=== PATIENT | male | born 1955 | race Two or more races ===

== ENCOUNTER 2017-12-25 18:35 | Emergency (ER) | payer OTHER ==
[~2017-12-25] VITALS: Ht 167.6 cm; Wt 74.8 kg
[~2017-12-25 18:35] MED LIST: ASPI-1152 PO; ATOR10TA PO; BENA5TAB5 PO; BENZ1TAB7 PO; FLUO-119 PO; GLIP5TAB13 PO; HALO10TA13 PO; MELO-105 PO; METF-441 PO; METO-356 PO; OLAN20TA3 PO; OLAN5TAB3 PO; SENN-108 PO
--- NOTE | 2017-12-25 19:00 | NUR ---
[facility] EMS FROM [facility] FOR INCREASING WEAKNESS X 4 DAYS POOR ORAL INTAKE. PT C/O NON TRAUMATIC RT HIP PAIN. PT AOX3 RR EVEN AND UNLABORED. NO SOB NOTED. NAD NOTED. NO NVD AT THIS TIME. PT GOWNED AND PLACED ON MONITOR. SEEN BY DR. CHRISTY .
--- NOTE | 2017-12-25 19:05 | NUR ---
LAB AT BEDSIDE FOR BLOOD DRAW.
[2017-12-25 19:09] LABS: BASOPHILS % (AUTO) 0.2 % (0.0-2.0); EOSINOPHILS % (AUTO) 3.5 % (0.0-6.0); HEMATOCRIT 43 % (39-51); HEMOGLOBIN 14.8 g/dL (13.5-17.5); LYMPHOCYTES # (AUTO) 1.9 /CMM (0.8-4.8); LYMPHOCYTES % (AUTO) 30.9 % (20.0-44.0); MEAN CORPUSCULAR HGB CONC 34 g/dl (31.0-36.0); MEAN CORPUSCULAR VOLUME 83 fL (80-96); MONOCYTES # (AUTO) 0.5 /CMM (0.1-1.30); MONOCYTES % (AUTO) 7.4 % (2.0-12.0); NEUTROPHILS # (AUTO) 3.7 /CMM (1.8-8.9); PLATELET COUNT (AUTO) 219 /CMM (150-450); RDW COEFFICIENT OF VARIATION 12.3 (11.5-15.0); RED BLOOD CELL COUNT(AUTO) 5.21 MIL/uL (4.5-6.0); WHITE BLOOD COUNT (AUTO) 6.3 K/uL (4.3-11.0)
--- NOTE | 2017-12-25 19:10 | NUR ---
BROTHER IN LAW, DERRICK AT BEDSIDE
[2017-12-25 19:22] LABS: CALCIUM, SERUM 9.1 mg/dL (8.5-10.1); CREATININE 1.1 mg/dL (0.6-1.3); POTASSIUM 3.8 mmol/L (3.5-5.1)
--- NOTE | 2017-12-25 19:40 | NUR ---
PT AMBULATORY TO RESTROOM. DR. CHRISTY MADE AWARE
[2017-12-25] MEDS ORDERED: IV NS 0.9% 1,000 ML BAG IV ONE (20:00)
--- NOTE | 2017-12-25 21:11 | NUR ---
ACCUCHECK [id number]. DR. CHRISTY MADE AWARE.
[2017-12-25] MEDS ORDERED: INSULIN ASPART/LISPRO 100 UNIT/ML CARTRIDGE SQ STA (21:13)
[2017-12-25] MEDS ORDERED: INSULIN REGULAR, HUMAN 100 UNIT/ML 10 ML VIAL ONE (21:17)
--- NOTE | 2017-12-25 21:29 | NUR ---
Dr Kumari paged per Dr Romo
--- NOTE | 2017-12-25 21:35 | NUR ---
dr. chris spoke to dr. lisa regarding poc.
[2017-12-25] MEDS ORDERED: CHOL500052 PO (21:41)
[2017-12-25] MEDS ORDERED: CARV3.12 PO (21:41)
[2017-12-25] MEDS ORDERED: EMPA10TA PO (21:41)
[2017-12-25] MEDS ORDERED: CHOL200026 PO (21:41)
[2017-12-25] MEDS ORDERED: SITA100T PO (21:41)
--- NOTE | 2017-12-25 21:53 | NUR ---
IV removed. Catheter intact and site benign. Pressure and 4x4 applied to site. No bleeding noted. Patient discharged to home in stable condition. Written and verbal after care instructions given. Patient verbalizes understanding of instruction. ambulatory with a steady gait. per brother in law, nhi to bring pt back to board and care.
[2017-12-25 21:55] VITALS: BP 116/68
[2017-12-25] MEDS ORDERED: INSULIN REGULAR, HUMAN 100 UNIT/ML 10 ML VIAL SQ ONE (22:00)
== END 2017-12-25 21:56 | disposition home or self-care (01) ==
LOC: ER 18:37
DX: E11.65 Type 2 diabetes mellitus with hyperglycemia (principal); E86.0 Dehydration; I10 Essential (primary) hypertension; E78.5 Hyperlipidemia, unspecified; F32.9 Major depressive disorder, single episode, unspecified; F17.210 Nicotine dependence, cigarettes, uncomplicated; Z79.84 Long term (current) use of oral hypoglycemic drugs; Z79.82 Long term (current) use of aspirin
CPT/HCPCS: 36415; 80048; 82962 ×2; 85025; 96360; 96361; 96372; 99285; A4606; J1815 ×2; J7030 ×2; J7040; Z7610